=== PATIENT | female | born 1950 | race Caucasian/White ===

== ENCOUNTER 2022-07-12 16:14 | Inpatient (IN) ==
[2022-07-12] MEDS ORDERED: Artificial Tears SOLN 15 ML BOTTLE OP PRN (19:18)
[2022-07-12] MEDS: *HR* Metformin 500 MG TABLET PO SCH (19:46)
[2022-07-12] MEDS: Cefdinir 300 MG CAPSULE PO SCH (22:33)
[2022-07-12] MEDS: *HR* HYDROcodone/Acet 5/325 mg TABLET PO PRN (22:34)
[2022-07-12] MEDS: Gabapentin 300 MG CAPSULE PO SCH (22:34)
[2022-07-12] MEDS: Melatonin 3 MG TABLET PO PRN (22:35)
[2022-07-13 08:13] LABS: Basophils % 0.3 %; Eosinophils # 0.1 K/mcL (0.0-0.6); Eosinophils % 0.9 %; Hemoglobin 10.6 g/dL (11.5-15.4); Immature Granulocytes % 0.3 % (0-4); Lymphocytes # 1.3 K/mcL (0.6-4.6); Lymphocytes % 19.2 %; Mean Corpuscular HGB Conc 30.3 g/dL (31.6-35.5); Mean Platelet Volume 10.2 fL (9.4-12.4); Monocytes # 0.4 K/mcL (0.0-1.3); Monocytes % 5.1 %; Neutrophils # 5.1 K/mcL (1.6-8.9); Platelet Count 124 K/mcL (140-400); Red Blood Count 4.07 M/mcL (3.82-4.97); Red Cell Distribution Width 15.9 % (11.5-14.5); Segmented Neutrophils % 74.2 %; White Blood Count 6.9 K/mcL (4.3-11.1)
[2022-07-13 08:31] LABS: Calcium 9.4 mg/dL (8.6-10.3); Potassium 3.5 mEq/L (3.5-5.1)
[2022-07-13] MEDS: *HR* Metformin 500 MG TABLET PO SCH ×2 (09:11→16:00)
[2022-07-13] MEDS: Cefdinir 300 MG CAPSULE PO SCH ×2 (09:12→21:23)
[2022-07-13] MEDS: Furosemide 20 MG TABLET PO SCH (09:12)
[2022-07-13] MEDS: Aspirin Enteric Coated 81 MG Tablet PO SCH (09:12)
[2022-07-13] MEDS: PARoxetine 20 MG TABLET PO SCH (09:12)
[2022-07-13] MEDS: Gabapentin 300 MG CAPSULE PO SCH ×2 (09:12→21:23)
[2022-07-13] MEDS: amLODIPine 5 MG TABLET PO SCH (09:12)
[2022-07-13] MEDS: *HR* HYDROcodone/Acet 5/325 mg TABLET PO PRN ×2 (09:13→21:24)
[2022-07-13] MEDS: Fluconazole 100 MG TABLET PO SCH (15:59)
[2022-07-13] MEDS: Acetaminophen 325 MG TABLET PO PRN (16:23)
[2022-07-13] MEDS: Melatonin 3 MG TABLET PO PRN (21:22)
[2022-07-14] MEDS: *HR* HYDROcodone/Acet 5/325 mg TABLET PO PRN ×3 (06:21→23:46)
[2022-07-14] MEDS: *HR* Enoxaparin 40 MG/0.4 ML SYRINGE SQ SCH (06:21)
[2022-07-14] MEDS: *HR* Metformin 500 MG TABLET PO SCH ×2 (09:38→16:59)
[2022-07-14] MEDS: Furosemide 20 MG TABLET PO SCH (09:39)
[2022-07-14] MEDS: Fluconazole 100 MG TABLET PO SCH (09:39)
[2022-07-14] MEDS: Aspirin Enteric Coated 81 MG Tablet PO SCH (09:39)
[2022-07-14] MEDS: Cefdinir 300 MG CAPSULE PO SCH ×2 (09:39→20:23)
[2022-07-14] MEDS: Acetaminophen 325 MG TABLET PO PRN (09:39)
[2022-07-14] MEDS: PARoxetine 20 MG TABLET PO SCH (09:40)
[2022-07-14] MEDS: Gabapentin 300 MG CAPSULE PO SCH ×2 (09:40→20:23)
[2022-07-14] MEDS: amLODIPine 5 MG TABLET PO SCH (09:41)
[2022-07-14] MEDS: Melatonin 3 MG TABLET PO PRN (23:46)
[2022-07-15] MEDS: Acetaminophen 325 MG TABLET PO PRN ×2 (04:55→15:21)
[2022-07-15] MEDS: *HR* Enoxaparin 40 MG/0.4 ML SYRINGE SQ SCH (04:55)
[2022-07-15] MEDS: amLODIPine 5 MG TABLET PO SCH (09:25)
[2022-07-15] MEDS: Gabapentin 300 MG CAPSULE PO SCH ×2 (09:26→20:01)
[2022-07-15] MEDS: *HR* Metformin 500 MG TABLET PO SCH ×2 (09:26→17:40)
[2022-07-15] MEDS: Furosemide 20 MG TABLET PO SCH (09:26)
[2022-07-15] MEDS: Aspirin Enteric Coated 81 MG Tablet PO SCH (09:27)
[2022-07-15] MEDS: Fluconazole 100 MG TABLET PO SCH (09:27)
[2022-07-15] MEDS: PARoxetine 20 MG TABLET PO SCH (09:27)
[2022-07-15] MEDS: Cefdinir 300 MG CAPSULE PO SCH (09:27)
[2022-07-15] MEDS: *HR* HYDROcodone/Acet 5/325 mg TABLET PO PRN ×2 (09:27→17:44)
[2022-07-16] MEDS: *HR* HYDROcodone/Acet 5/325 mg TABLET PO PRN ×3 (02:25→22:23)
[2022-07-16] MEDS: *HR* Enoxaparin 40 MG/0.4 ML SYRINGE SQ SCH (05:34)
[2022-07-16] MEDS: Acetaminophen 325 MG TABLET PO PRN (05:34)
[2022-07-16] MEDS: PARoxetine 20 MG TABLET PO SCH (09:58)
[2022-07-16] MEDS: Aspirin Enteric Coated 81 MG Tablet PO SCH (09:58)
[2022-07-16] MEDS: levoFLOXacin 750 MG TABLET PO SCH (09:59)
[2022-07-16] MEDS: *HR* Metformin 500 MG TABLET PO SCH ×2 (09:59→16:54)
[2022-07-16] MEDS: Furosemide 20 MG TABLET PO SCH (10:00)
[2022-07-16] MEDS: amLODIPine 5 MG TABLET PO SCH (10:00)
[2022-07-16] MEDS: Gabapentin 300 MG CAPSULE PO SCH ×2 (10:02→22:23)
[2022-07-16] MEDS: Melatonin 3 MG TABLET PO PRN (22:23)
[2022-07-17] MEDS: *HR* Enoxaparin 40 MG/0.4 ML SYRINGE SQ SCH (06:51)
[2022-07-17] MEDS: *HR* HYDROcodone/Acet 5/325 mg TABLET PO PRN ×2 (06:51→18:55)
[2022-07-17] MEDS: *HR* Metformin 500 MG TABLET PO SCH ×2 (08:36→16:47)
[2022-07-17] MEDS: Furosemide 20 MG TABLET PO SCH (08:36)
[2022-07-17] MEDS: Acetaminophen 325 MG TABLET PO PRN (08:36)
[2022-07-17] MEDS: Aspirin Enteric Coated 81 MG Tablet PO SCH (08:37)
[2022-07-17] MEDS: amLODIPine 5 MG TABLET PO SCH (08:37)
[2022-07-17] MEDS: PARoxetine 20 MG TABLET PO SCH (08:37)
[2022-07-17] MEDS: Gabapentin 300 MG CAPSULE PO SCH ×2 (08:37→20:05)
[2022-07-17] MEDS: levoFLOXacin 750 MG TABLET PO SCH (08:37)
[2022-07-18] MEDS: *HR* Enoxaparin 40 MG/0.4 ML SYRINGE SQ SCH (06:40)
[2022-07-18] MEDS: *HR* Metformin 500 MG TABLET PO SCH ×2 (08:19→15:33)
[2022-07-18] MEDS: Aspirin Enteric Coated 81 MG Tablet PO SCH (08:20)
[2022-07-18] MEDS: amLODIPine 5 MG TABLET PO SCH (08:20)
[2022-07-18] MEDS: Furosemide 20 MG TABLET PO SCH (08:20)
[2022-07-18] MEDS: PARoxetine 20 MG TABLET PO SCH (08:20)
[2022-07-18] MEDS: *HR* HYDROcodone/Acet 5/325 mg TABLET PO PRN ×2 (08:21→20:36)
[2022-07-18] MEDS: levoFLOXacin 750 MG TABLET PO SCH (08:21)
[2022-07-18] MEDS: Gabapentin 300 MG CAPSULE PO SCH ×2 (08:21→20:36)
[2022-07-18] MEDS: Acetaminophen 325 MG TABLET PO PRN (15:32)
[2022-07-18] MEDS: Melatonin 3 MG TABLET PO PRN (20:36)
[2022-07-19] MEDS: *HR* Enoxaparin 40 MG/0.4 ML SYRINGE SQ SCH (06:09)
[2022-07-19] MEDS: *HR* HYDROcodone/Acet 5/325 mg TABLET PO PRN ×2 (08:54→18:40)
[2022-07-19] MEDS: Gabapentin 300 MG CAPSULE PO SCH ×2 (08:54→20:54)
[2022-07-19] MEDS: levoFLOXacin 750 MG TABLET PO SCH (08:54)
[2022-07-19] MEDS: amLODIPine 5 MG TABLET PO SCH (08:55)
[2022-07-19] MEDS: Aspirin Enteric Coated 81 MG Tablet PO SCH (08:55)
[2022-07-19] MEDS: Furosemide 20 MG TABLET PO SCH (08:55)
[2022-07-19] MEDS: *HR* Metformin 500 MG TABLET PO SCH ×2 (08:55→18:40)
[2022-07-19] MEDS: PARoxetine 20 MG TABLET PO SCH (08:55)
[2022-07-19] MEDS: Acetaminophen 325 MG TABLET PO PRN (21:05)
[2022-07-19] MEDS: Melatonin 3 MG TABLET PO PRN (21:05)
[2022-07-20] MEDS: *HR* Enoxaparin 40 MG/0.4 ML SYRINGE SQ SCH (05:10)
[2022-07-20] MEDS: Aspirin Enteric Coated 81 MG Tablet PO SCH (09:24)
[2022-07-20] MEDS: Gabapentin 300 MG CAPSULE PO SCH ×2 (09:25→20:25)
[2022-07-20] MEDS: levoFLOXacin 750 MG TABLET PO SCH (09:25)
[2022-07-20] MEDS: *HR* Metformin 500 MG TABLET PO SCH ×2 (09:25→17:09)
[2022-07-20] MEDS: PARoxetine 20 MG TABLET PO SCH (09:26)
[2022-07-20] MEDS: Furosemide 20 MG TABLET PO SCH (09:27)
[2022-07-20] MEDS: amLODIPine 5 MG TABLET PO SCH (09:27)
[2022-07-20] MEDS: *HR* HYDROcodone/Acet 5/325 mg TABLET PO PRN ×2 (09:38→17:27)
[2022-07-21] MEDS: *HR* HYDROcodone/Acet 5/325 mg TABLET PO PRN ×2 (03:23→13:02)
[2022-07-21] MEDS: *HR* Enoxaparin 40 MG/0.4 ML SYRINGE SQ SCH (06:18)
[2022-07-21] MEDS: *HR* Metformin 500 MG TABLET PO SCH ×2 (09:29→17:36)
[2022-07-21] MEDS: Furosemide 20 MG TABLET PO SCH (09:29)
[2022-07-21] MEDS: Aspirin Enteric Coated 81 MG Tablet PO SCH (09:29)
[2022-07-21] MEDS: PARoxetine 20 MG TABLET PO SCH (09:29)
[2022-07-21] MEDS: amLODIPine 5 MG TABLET PO SCH (09:29)
[2022-07-21] MEDS: Gabapentin 300 MG CAPSULE PO SCH ×2 (09:29→20:40)
[2022-07-21] MEDS: Melatonin 3 MG TABLET PO PRN (20:40)
[2022-07-22] MEDS: *HR* HYDROcodone/Acet 5/325 mg TABLET PO PRN ×3 (01:22→17:37)
[2022-07-22] MEDS: *HR* Enoxaparin 40 MG/0.4 ML SYRINGE SQ SCH (05:09)
[2022-07-22] MEDS: *HR* Metformin 500 MG TABLET PO SCH ×2 (09:45→17:37)
[2022-07-22] MEDS: PARoxetine 20 MG TABLET PO SCH (09:45)
[2022-07-22] MEDS: Aspirin Enteric Coated 81 MG Tablet PO SCH (09:45)
[2022-07-22] MEDS: Furosemide 20 MG TABLET PO SCH (09:46)
[2022-07-22] MEDS: amLODIPine 5 MG TABLET PO SCH (09:47)
[2022-07-22] MEDS: Gabapentin 300 MG CAPSULE PO SCH ×2 (09:47→20:20)
[2022-07-22] MEDS: Acetaminophen 325 MG TABLET PO PRN (15:38)
[2022-07-22] MEDS: Melatonin 3 MG TABLET PO PRN (20:19)
[2022-07-23] MEDS: *HR* Enoxaparin 40 MG/0.4 ML SYRINGE SQ SCH (06:17)
[2022-07-23] MEDS: PARoxetine 20 MG TABLET PO SCH (08:31)
[2022-07-23] MEDS: *HR* Metformin 500 MG TABLET PO SCH ×2 (08:31→17:55)
[2022-07-23] MEDS: Aspirin Enteric Coated 81 MG Tablet PO SCH (08:31)
[2022-07-23] MEDS: Furosemide 20 MG TABLET PO SCH (08:32)
[2022-07-23] MEDS: Gabapentin 300 MG CAPSULE PO SCH ×2 (08:32→21:26)
[2022-07-23] MEDS: amLODIPine 5 MG TABLET PO SCH (08:32)
[2022-07-23] MEDS: *HR* HYDROcodone/Acet 5/325 mg TABLET PO PRN ×2 (08:36→17:58)
[2022-07-23] MEDS: Melatonin 3 MG TABLET PO PRN (21:25)
[2022-07-23] MEDS: Acetaminophen 325 MG TABLET PO PRN (21:26)
[2022-07-24] MEDS: *HR* Enoxaparin 40 MG/0.4 ML SYRINGE SQ SCH (06:53)
[2022-07-24 07:30] LABS: Hematocrit 32.5 % (35.3-44.9); Hemoglobin 9.9 g/dL (11.5-15.4); Mean Corpuscular HGB Conc 30.5 g/dL (31.6-35.5); Mean Corpuscular Hemoglobin 25.9 pg (28.0-33.3); Mean Corpuscular Volume 85.1 fL (83.0-100.0); Mean Platelet Volume 10.6 fL (9.4-12.4); Platelet Count 107 K/mcL (140-400); Red Blood Count 3.82 M/mcL (3.82-4.97); Red Cell Distribution Width 15.9 % (11.5-14.5); White Blood Count 4.3 K/mcL (4.3-11.1)
[2022-07-24 07:46] LABS: Calcium 9.3 mg/dL (8.6-10.3); Potassium 3.6 mEq/L (3.5-5.1)
[2022-07-24] MEDS: Gabapentin 300 MG CAPSULE PO SCH ×2 (08:06→21:30)
[2022-07-24] MEDS: Furosemide 20 MG TABLET PO SCH (08:06)
[2022-07-24] MEDS: PARoxetine 20 MG TABLET PO SCH (08:06)
[2022-07-24] MEDS: Aspirin Enteric Coated 81 MG Tablet PO SCH (08:06)
[2022-07-24] MEDS: *HR* Metformin 500 MG TABLET PO SCH ×2 (08:06→17:34)
[2022-07-24] MEDS: amLODIPine 5 MG TABLET PO SCH (08:07)
[2022-07-24] MEDS: *HR* HYDROcodone/Acet 5/325 mg TABLET PO PRN (17:34)
[2022-07-24] MEDS: Melatonin 3 MG TABLET PO PRN (21:31)
[2022-07-24] MEDS: Ondansetron ODT 4 MG TAB.RAPDIS SL PRN (21:40)
[2022-07-25] MEDS: *HR* Enoxaparin 40 MG/0.4 ML SYRINGE SQ SCH (06:36)
[2022-07-25] MEDS: *HR* HYDROcodone/Acet 5/325 mg TABLET PO PRN ×2 (06:36→16:18)
[2022-07-25] MEDS: *HR* Metformin 500 MG TABLET PO SCH ×2 (10:27→16:17)
[2022-07-25] MEDS: Furosemide 20 MG TABLET PO SCH (10:28)
[2022-07-25] MEDS: amLODIPine 5 MG TABLET PO SCH (10:28)
[2022-07-25] MEDS: Aspirin Enteric Coated 81 MG Tablet PO SCH (10:28)
[2022-07-25] MEDS: PARoxetine 20 MG TABLET PO SCH (10:29)
[2022-07-25] MEDS: Gabapentin 300 MG CAPSULE PO SCH ×2 (10:29→20:31)
[2022-07-25] MEDS: Melatonin 3 MG TABLET PO PRN (20:30)
[2022-07-26] MEDS: *HR* Enoxaparin 40 MG/0.4 ML SYRINGE SQ SCH (06:37)
[2022-07-26] MEDS: Gabapentin 300 MG CAPSULE PO SCH ×2 (09:00→20:15)
[2022-07-26] MEDS: Furosemide 20 MG TABLET PO SCH (09:00)
[2022-07-26] MEDS: amLODIPine 5 MG TABLET PO SCH (09:01)
[2022-07-26] MEDS: PARoxetine 20 MG TABLET PO SCH (09:01)
[2022-07-26] MEDS: *HR* Metformin 500 MG TABLET PO SCH ×2 (09:02→16:45)
[2022-07-26] MEDS: Aspirin Enteric Coated 81 MG Tablet PO SCH (09:02)
[2022-07-26] MEDS: *HR* HYDROcodone/Acet 5/325 mg TABLET PO PRN ×2 (09:06→17:50)
[2022-07-26] MEDS: Acetaminophen 325 MG TABLET PO PRN (16:44)
[2022-07-26] MEDS: Melatonin 3 MG TABLET PO PRN (20:16)
[2022-07-27] MEDS: *HR* Enoxaparin 40 MG/0.4 ML SYRINGE SQ SCH (05:52)
[2022-07-27] MEDS: Aspirin Enteric Coated 81 MG Tablet PO SCH (09:29)
[2022-07-27] MEDS: PARoxetine 20 MG TABLET PO SCH (09:29)
[2022-07-27] MEDS: *HR* HYDROcodone/Acet 5/325 mg TABLET PO PRN ×2 (09:30→17:33)
[2022-07-27] MEDS: amLODIPine 5 MG TABLET PO SCH (09:30)
[2022-07-27] MEDS: *HR* Metformin 500 MG TABLET PO SCH ×2 (09:31→17:33)
[2022-07-27] MEDS: Gabapentin 300 MG CAPSULE PO SCH ×2 (09:31→20:07)
[2022-07-27] MEDS: Furosemide 20 MG TABLET PO SCH (09:31)
[2022-07-28] MEDS: Ondansetron ODT 4 MG TAB.RAPDIS SL PRN (01:31)
[2022-07-28] MEDS: *HR* HYDROcodone/Acet 5/325 mg TABLET PO PRN ×3 (01:33→19:52)
[2022-07-28] MEDS: *HR* Enoxaparin 40 MG/0.4 ML SYRINGE SQ SCH (05:35)
[2022-07-28] MEDS: *HR* Metformin 500 MG TABLET PO SCH ×2 (09:40→16:08)
[2022-07-28] MEDS: Furosemide 20 MG TABLET PO SCH (09:41)
[2022-07-28] MEDS: PARoxetine 20 MG TABLET PO SCH (09:41)
[2022-07-28] MEDS: Aspirin Enteric Coated 81 MG Tablet PO SCH (09:41)
[2022-07-28] MEDS: amLODIPine 5 MG TABLET PO SCH (09:42)
[2022-07-28] MEDS: Gabapentin 300 MG CAPSULE PO SCH ×2 (09:42→19:52)
[2022-07-28] MEDS: Melatonin 3 MG TABLET PO PRN (19:53)
[2022-07-29] MEDS: *HR* Enoxaparin 40 MG/0.4 ML SYRINGE SQ SCH (06:19)
[2022-07-29 07:40] LABS: Hematocrit 31.1 % (35.3-44.9); Hemoglobin 9.4 g/dL (11.5-15.4); Mean Corpuscular HGB Conc 30.2 g/dL (31.6-35.5); Mean Corpuscular Volume 86.1 fL (83.0-100.0); Mean Platelet Volume 10.9 fL (9.4-12.4); Platelet Count 113 K/mcL (140-400); Red Blood Count 3.61 M/mcL (3.82-4.97); Red Cell Distribution Width 15.6 % (11.5-14.5); White Blood Count 4.5 K/mcL (4.3-11.1)
[2022-07-29] MEDS: Furosemide 20 MG TABLET PO SCH (07:49)
[2022-07-29] MEDS: PARoxetine 20 MG TABLET PO SCH (07:49)
[2022-07-29] MEDS: Gabapentin 300 MG CAPSULE PO SCH ×2 (07:49→20:09)
[2022-07-29] MEDS: *HR* Metformin 500 MG TABLET PO SCH ×2 (07:49→16:32)
[2022-07-29] MEDS: amLODIPine 5 MG TABLET PO SCH (07:49)
[2022-07-29] MEDS: Aspirin Enteric Coated 81 MG Tablet PO SCH (07:50)
[2022-07-29 07:51] LABS: BUN/Creatinine Ratio 18 (6-26); Blood Urea Nitrogen 13 mg/dL (8-23); Calcium 9.1 mg/dL (8.6-10.3); Carbon Dioxide 37 mEq/L (23-29); Chloride 97 mEq/L (98-107); Glucose 212 mg/dL (70-105); Osmolality,Calculated 300 (280-300); Potassium 3.5 mEq/L (3.5-5.1); Sodium 142 mEq/L (136-145)
[2022-07-29] MEDS: *HR* HYDROcodone/Acet 5/325 mg TABLET PO PRN ×2 (08:05→16:32)
[2022-07-29] MEDS: Melatonin 3 MG TABLET PO PRN (20:10)
[2022-07-30] MEDS: *HR* HYDROcodone/Acet 5/325 mg TABLET PO PRN ×2 (06:37→18:02)
[2022-07-30] MEDS: *HR* Enoxaparin 40 MG/0.4 ML SYRINGE SQ SCH (06:38)
[2022-07-30] MEDS: *HR* Metformin 500 MG TABLET PO SCH ×2 (08:53→17:18)
[2022-07-30] MEDS: Gabapentin 300 MG CAPSULE PO SCH ×2 (08:53→21:44)
[2022-07-30] MEDS: Aspirin Enteric Coated 81 MG Tablet PO SCH (08:53)
[2022-07-30] MEDS: amLODIPine 5 MG TABLET PO SCH (08:53)
[2022-07-30] MEDS: Furosemide 20 MG TABLET PO SCH (08:53)
[2022-07-30] MEDS: PARoxetine 20 MG TABLET PO SCH (08:53)
[2022-07-30] MEDS: Melatonin 3 MG TABLET PO PRN (21:43)
[2022-07-31] MEDS: *HR* HYDROcodone/Acet 5/325 mg TABLET PO PRN ×2 (03:22→19:49)
[2022-07-31] MEDS: *HR* Enoxaparin 40 MG/0.4 ML SYRINGE SQ SCH (06:49)
[2022-07-31] MEDS: PARoxetine 20 MG TABLET PO SCH (08:22)
[2022-07-31] MEDS: amLODIPine 5 MG TABLET PO SCH (08:23)
[2022-07-31] MEDS: Gabapentin 300 MG CAPSULE PO SCH ×2 (08:23→19:50)
[2022-07-31] MEDS: *HR* Metformin 500 MG TABLET PO SCH ×2 (08:23→16:08)
[2022-07-31] MEDS: Aspirin Enteric Coated 81 MG Tablet PO SCH (08:23)
[2022-07-31] MEDS: Furosemide 20 MG TABLET PO SCH (08:23)
[2022-07-31] MEDS: Acetaminophen 325 MG TABLET PO PRN (16:17)
[2022-08-01] MEDS: *HR* Enoxaparin 40 MG/0.4 ML SYRINGE SQ SCH (05:22)
[2022-08-01] MEDS: amLODIPine 5 MG TABLET PO SCH (08:52)
[2022-08-01] MEDS: Furosemide 20 MG TABLET PO SCH (08:53)
[2022-08-01] MEDS: PARoxetine 20 MG TABLET PO SCH (08:53)
[2022-08-01] MEDS: *HR* Metformin 500 MG TABLET PO SCH ×2 (08:53→17:31)
[2022-08-01] MEDS: Gabapentin 300 MG CAPSULE PO SCH ×2 (08:53→19:47)
[2022-08-01] MEDS: Aspirin Enteric Coated 81 MG Tablet PO SCH (08:54)
[2022-08-01] MEDS: Melatonin 3 MG TABLET PO PRN (19:47)
[2022-08-01] MEDS: *HR* HYDROcodone/Acet 5/325 mg TABLET PO PRN (19:48)
[2022-08-02] MEDS: *HR* Enoxaparin 40 MG/0.4 ML SYRINGE SQ SCH (05:11)
[2022-08-02] MEDS: *HR* HYDROcodone/Acet 5/325 mg TABLET PO PRN (08:50)
[2022-08-02] MEDS: PARoxetine 20 MG TABLET PO SCH (08:50)
[2022-08-02] MEDS: Aspirin Enteric Coated 81 MG Tablet PO SCH (08:50)
[2022-08-02] MEDS: Gabapentin 300 MG CAPSULE PO SCH ×2 (08:50→19:53)
[2022-08-02] MEDS: Furosemide 20 MG TABLET PO SCH (08:51)
[2022-08-02] MEDS: amLODIPine 5 MG TABLET PO SCH (08:51)
[2022-08-02] MEDS: *HR* Metformin 500 MG TABLET PO SCH ×2 (08:52→16:04)
[2022-08-02] MEDS: Melatonin 3 MG TABLET PO PRN (19:53)
[2022-08-02] MEDS: Acetaminophen 325 MG TABLET PO PRN (19:53)
[2022-08-03] MEDS: *HR* HYDROcodone/Acet 5/325 mg TABLET PO PRN ×2 (02:31→21:46)
[2022-08-03] MEDS: *HR* Enoxaparin 40 MG/0.4 ML SYRINGE SQ SCH (05:35)
[2022-08-03] MEDS: *HR* Metformin 500 MG TABLET PO SCH ×2 (08:40→17:59)
[2022-08-03] MEDS: Acetaminophen 325 MG TABLET PO PRN (08:40)
[2022-08-03] MEDS: Aspirin Enteric Coated 81 MG Tablet PO SCH (08:40)
[2022-08-03] MEDS: Gabapentin 300 MG CAPSULE PO SCH ×2 (08:41→21:46)
[2022-08-03] MEDS: Furosemide 20 MG TABLET PO SCH (08:41)
[2022-08-03] MEDS: amLODIPine 5 MG TABLET PO SCH (08:41)
[2022-08-03] MEDS: PARoxetine 20 MG TABLET PO SCH (08:41)
[2022-08-03] MEDS: Melatonin 3 MG TABLET PO PRN (21:46)
[2022-08-04] MEDS: *HR* Enoxaparin 40 MG/0.4 ML SYRINGE SQ SCH (06:29)
[2022-08-04] MEDS: Acetaminophen 325 MG TABLET PO PRN ×2 (06:45→21:15)
[2022-08-04] MEDS: *HR* Metformin 500 MG TABLET PO SCH ×2 (10:57→18:46)
[2022-08-04] MEDS: Gabapentin 300 MG CAPSULE PO SCH ×2 (10:57→21:15)
[2022-08-04] MEDS: Furosemide 20 MG TABLET PO SCH (10:57)
[2022-08-04] MEDS: amLODIPine 5 MG TABLET PO SCH (10:57)
[2022-08-04] MEDS: Aspirin Enteric Coated 81 MG Tablet PO SCH (10:57)
[2022-08-04] MEDS: PARoxetine 20 MG TABLET PO SCH (10:58)
[2022-08-04] MEDS: Ibuprofen 600 MG TABLET PO PRN (18:46)
[2022-08-04] MEDS: Melatonin 3 MG TABLET PO PRN (21:15)
[2022-08-05] MEDS: Ondansetron ODT 4 MG TAB.RAPDIS SL PRN (02:36)
[2022-08-05] MEDS: *HR* Enoxaparin 40 MG/0.4 ML SYRINGE SQ SCH (06:24)
[2022-08-05] MEDS: Acetaminophen 325 MG TABLET PO PRN ×2 (09:54→17:39)
[2022-08-05] MEDS: PARoxetine 20 MG TABLET PO SCH (09:54)
[2022-08-05] MEDS: *HR* Metformin 500 MG TABLET PO SCH ×2 (09:54→16:44)
[2022-08-05] MEDS: Gabapentin 300 MG CAPSULE PO SCH ×2 (09:55→20:04)
[2022-08-05] MEDS: amLODIPine 5 MG TABLET PO SCH (09:55)
[2022-08-05] MEDS: Aspirin Enteric Coated 81 MG Tablet PO SCH (09:55)
[2022-08-05] MEDS: Furosemide 20 MG TABLET PO SCH (09:55)
[2022-08-05] MEDS: Ibuprofen 600 MG TABLET PO PRN (20:04)
[2022-08-06] MEDS: Melatonin 3 MG TABLET PO PRN ×2 (02:09→20:12)
[2022-08-06] MEDS: *HR* Enoxaparin 40 MG/0.4 ML SYRINGE SQ SCH (05:43)
[2022-08-06] MEDS: PARoxetine 20 MG TABLET PO SCH (08:34)
[2022-08-06] MEDS: amLODIPine 5 MG TABLET PO SCH (08:34)
[2022-08-06] MEDS: *HR* Metformin 500 MG TABLET PO SCH ×2 (08:34→17:40)
[2022-08-06] MEDS: Gabapentin 300 MG CAPSULE PO SCH ×2 (08:34→20:11)
[2022-08-06] MEDS: Furosemide 20 MG TABLET PO SCH (08:34)
[2022-08-06] MEDS: Aspirin Enteric Coated 81 MG Tablet PO SCH (08:34)
[2022-08-06] MEDS: Ibuprofen 600 MG TABLET PO PRN (14:42)
[2022-08-06] MEDS: Acetaminophen 325 MG TABLET PO PRN (20:11)
[2022-08-07] MEDS: *HR* Enoxaparin 40 MG/0.4 ML SYRINGE SQ SCH (06:34)
[2022-08-07] MEDS: *HR* Metformin 500 MG TABLET PO SCH ×2 (10:03→15:42)
[2022-08-07] MEDS: Gabapentin 300 MG CAPSULE PO SCH ×2 (10:03→20:51)
[2022-08-07] MEDS: Aspirin Enteric Coated 81 MG Tablet PO SCH (10:03)
[2022-08-07] MEDS: Furosemide 20 MG TABLET PO SCH (10:04)
[2022-08-07] MEDS: PARoxetine 20 MG TABLET PO SCH (10:04)
[2022-08-07] MEDS: amLODIPine 5 MG TABLET PO SCH (10:05)
[2022-08-07] MEDS ORDERED: Saline Nasal Spray 44 ML BOTTLE NS PRN (14:27)
[2022-08-07] MEDS: GuaiFENesin/Pseudophedrine TABLET PO PRN (14:46)
[2022-08-07 17:05] LABS: Adenovirus Not Detected (Not Detect); Bordetella Pertussis Not Detected (Not Detect); Chlamydophila pneumoniae Not Detected (Not Detect); Coronavirus 229E Not Detected (Not Detect); Coronavirus HKU1 Not Detected (Not Detect); Coronavirus NL63 Not Detected (Not Detect); Coronavirus OC43 Not Detected (Not Detect); Human Metapneumovirus Not Detected (Not Detect); Human Rhinovirus/Enterovirus Not Detected (Not Detect); Influenza A Subtype 2009 H1 Not Detected (Not Detect); Influenza B Not Detected (Not Detect); Mycoplasma pneumoniae Not Detected (Not Detect); Parainfluenza Virus 1 Not Detected (Not Detect); Parainfluenza Virus 2 Not Detected (Not Detect); Parainfluenza Virus 3 Not Detected (Not Detect); Parainfluenza Virus 4 Not Detected (Not Detect); Respiratory Syncytial Virus DETECTED (Not Detect); SARS-CoV-2 Not Detected (Not Detect)
[2022-08-07] MEDS: Acetaminophen 325 MG TABLET PO PRN (20:48)
[2022-08-08] MEDS: *HR* Enoxaparin 40 MG/0.4 ML SYRINGE SQ SCH (05:26)
[2022-08-08] MEDS: Ibuprofen 600 MG TABLET PO PRN (05:28)
[2022-08-08] MEDS: amLODIPine 5 MG TABLET PO SCH (09:18)
[2022-08-08] MEDS: GuaiFENesin/Pseudophedrine TABLET PO PRN (09:18)
[2022-08-08] MEDS: Furosemide 20 MG TABLET PO SCH (09:22)
[2022-08-08] MEDS: PARoxetine 20 MG TABLET PO SCH (09:22)
[2022-08-08] MEDS: Aspirin Enteric Coated 81 MG Tablet PO SCH (09:23)
[2022-08-08] MEDS: Gabapentin 300 MG CAPSULE PO SCH (09:23)
[2022-08-08] MEDS: *HR* Metformin 500 MG TABLET PO SCH ×2 (09:23→16:54)
[2022-08-08 09:35] VITALS: BP 123/71; PULSE 97; RESP 18; TEMP 97.9; O2SAT 95
== END 2022-08-08 17:00 | disposition home health service (06) | DRG 690 ==
LOC: SUATTDRO 18:51 → INPPIK 18:51
PROVIDERS: ADMIT Internal Medicine; ATTEND Nurse Practitioner